=== PATIENT | female | born 1990 | race Caucasian/White ===

== ENCOUNTER 2024-11-09 09:09 | Outpatient (CLI) | payer BC ==
[2024-11-09 10:06] LABS: BHCG - Serum Negative (NEGATIVE); Pregs Control Background? CLEAR/WHITE (CLR/WHITE); Pregs Control Bar Appear? YES (CONTROL BAR)
== END 2024-11-09 09:10 | disposition home or self-care (01) ==
LOC: CT 09:09
PROVIDERS: ATTEND Surgery
DX: Z32.00 Encounter for pregnancy test, result unknown (principal); C50.911 Malignant neoplasm of unspecified site of right female breast
CPT/HCPCS: 36415; 78306; 84703; A9503